=== PATIENT | male | born 1970 | race Caucasian/White ===

== ENCOUNTER 2020-07-14 05:38 | Emergency (ER) | payer OTHER, SELFPAY ==
--- NOTE | ~2020-07-14 | CT_ITS ---
EXAMINATION: CT abdomen pelvis wo con DATE: 07/14/2020 06:21 INDICATION: Right flank pain TECHNIQUE: Computed tomography (CT) of the abdomen and pelvis was performed without intravenous contr ast. The dose-length product was 555.07 mGy-cm. Automated exposure control and iterative reconstructi on technique were employed. COMPARISON: None. FINDINGS: There is a 3 mm right UVJ stone with mild hydronephrosis. Lung bases unremarkable. Heart size normal. No significant pleural or pericardial effusion. Small hia amie hernia. The liver, spleen, pancreas, adrenal glands and right kidney are unremarkable. There is a left renal cyst measuring 2.1 cm. Nonobstructive bowel gas pattern. Normal appendix. No free air or free fluid. No significant vascular abnormality. Retroaortic left renal vein. No lymphadenopathy. No acute osseou s abnormality. IMPRESSION: 1. 3 mm right UVJ stone with mild hydronephrosis. Reviewed, dictated and finalized at location A.
[2020-07-14 05:43] VITALS: BP 125/68; PULSE 57; RESP 18; TEMP 36.1; O2SAT 99
--- NOTE | 2020-07-14 05:49 | ED.ABDPAIN ---
HPI - Abdominal Pain General Chief Complaint: Abdominal Pain Stated Complaint: lower back and abd pain Time Seen by Provider: 07/14/20 05:47 History of Present Illness HPI narrative: 49 yo male presents to the ED for right flank pain. He has had intermittent pain in the right flank radiating to the right lower back for the past 2 days. the pain was acuetely worse this morning and was not resloving. 7/10 in severity. He has never had this pain before. It is associated with a feeling of incomplete bladder emptying. No hematuria, dysuria, nausea, vomiting, diarrhea. Related Data Allergies Allergy/AdvReac Type Severity Reaction Status Date / Time No Known Allergies Allergy Verified 07/14/20 06:07 Review of Systems Review of Systems: All systems reviewed & are unremarkable except as noted in HPI and below Constitutional: Constitutional: Denies fever(s) Cardiovascular: Cardiovascular: Denies chest pain Respiratory: Respiratory: Denies dyspnea Gastrointestinal: Gastrointestinal: Reports abdominal pain, Denies constipation, Denies diarrhea, Denies nausea and Denies vomiting Genitourinary: Genitourinary: Denies hematuria and Denies dysuria [facility] Social History Social History (Updated 07/14/20 @ 06:18 by Chiki Schulte MD) Smoking status: Never smoker Living arrangements: with family Gender identity (if verbalized by the patient): Male Exam Const: General: healthy appearing, no acute distress and alert Orientation/consciousness: patient oriented x3 HENMT: Head: normal to inspection Neck: Neck: normal visual inspection and no lymphadenopathy Resp: Effort & Inspection: normal respiratory effort Auscultation: clear to auscultation bilaterally, no rales, no rhonchi and no wheezes Cardio: Jugular venous distension: no JVD Rate: regular rate Rhythm: regular rhythm Heart sounds: no murmurs GI: Inspection: non-distended GI Palp: Yes Soft to palpation and No Tenderness to palpation present (GI) Skin: General skin exam: normal color Neuro: General: patient oriented x3 and moves all extremities Speech: normal speech Extrem: General: no edema Psych: Appearance: well kempt Affect: normal affect Course Vital Signs Vital signs: Vital Signs Temperature 36.1 C L 07/14/20 05:43 Pulse Rate 57 L 07/14/20 05:43 Respiratory Rate 18 07/14/20 05:43 Blood Pressure 125/68 07/14/20 05:43 Pulse Oximetry 99 07/14/20 05:43 Temperature 36.1 C L 07/14/20 05:43 Pulse Rate 60 07/14/20 08:43 Respiratory Rate 20 07/14/20 08:43 Blood Pressure 120/71 07/14/20 08:43 Pulse Oximetry 99 07/14/20 08:43 MDM - Abdominal Pain Differential Diagnosis Differential diagnosis: Likely acute appendicitis, calculus of kidney and diverticulitis Medical Records Attestation: I reviewed the patient's medical records. Lab Data Attestation: I reviewed the patient's lab results. Result diagrams: 07/14/20 06:03 07/14/20 06:03 Labs: Lab Results 07/14/20 07/14/20 Range/Units 06:03 06:03 WBC 6.7 (4.5-10.0) K/mm3 RBC 4.78 (4.6-6.20) M/mm3 Hgb 14.5 (14.0-18.0) g/dL Hct 43.0 (42.0-52.0) % MCV 90.0 (80-100) fl MCH 30.3 (26-34) pg MCHC 33.7 (32-36) g/dl RDW 11.9 (11.5-14.5) % Plt Count 185 (150-375) k/mm3 MPV 9.2 (7.4-10.4) fl Immature Gran % (Auto) 0.1 (0-0.5) % Neut % (Auto) 63.7 (45.5-73.1) % Lymph % (Auto) 26.0 (18.3-44.2) % [place] % (Auto) 7.7 (2.6-8.5) % Eos % (Auto) 1.3 (0-4.4) % Baso % (Auto) 1.2 (0.2-1.2) % Lymph # (Auto) 1.75 (0.9-3.2) K/mm3 [place] # (Auto) 0.5 (0.1-0.6) K/mm3 Eos # (Auto) 0.1 (0-0.3) K/mm3 Baso # (Auto) 0.1 (0.0-0.1) K/mm3 Abs Immat Gran (auto) 0.01 (0.00-0.031) K/mm3 Absolute Neuts (auto) 4.3 (1.3-6.7) K/mm3 Absolute Nucleated RBC 0.0 (0.0-0.012) K/mm3 Nucleated RBC % 0.0 (0.0-0.2) % Sodium Cancelled Potassium Cancelled Chloride Cancelled
[2020-07-14] MEDS: SODIUM CHLORIDE 0.9% IV 1,000 ML 999 ML IV CONT (05:59)
[2020-07-14] MEDS: fentaNYL CITRATE INJ (*CRX) 100 MCG/2 ML VIAL 50 MCG IV PUSH (05:59)
[2020-07-14 06:11] LABS: Basophils Absolute Auto 0.1 K/mm3 (0.0-0.1); Basophils Percent Auto 1.2 % (0.2-1.2); Eosinophils Absolute Auto 0.1 K/mm3 (0-0.3); Eosinophils Percent Auto 1.3 % (0-4.4); Hemoglobin 14.5 g/dL (14.0-18.0); Immature Granulocyte Absolute 0.01 K/mm3 (0.00-0.031); Immature Granulocyte Percent A 0.1 % (0-0.5); Lymphocytes Absolute Auto 1.75 K/mm3 (0.9-3.2); Mean Corpuscular HGB Conc 33.7 g/dl (32-36); Mean Corpuscular Hemoglobin 30.3 pg (26-34); Mean Platelet Volume 9.2 fl (7.4-10.4); Monocytes Absolute Auto 0.5 K/mm3 (0.1-0.6); Monocytes Percent Auto 7.7 % (2.6-8.5); Neutrophils Absolute Auto 4.3 K/mm3 (1.3-6.7); Neutrophils Percent Auto 63.7 % (45.5-73.1); Platelet Count Result 185 k/mm3 (150-375); Red Blood Count 4.78 M/mm3 (4.6-6.20); Red Cell Distribution Width 11.9 % (11.5-14.5); White Blood Count 6.7 K/mm3 (4.5-10.0)
[2020-07-14] MEDS: KETOROLAC 30 MG/ML VIAL (*BKC) IV PUSH (06:32)
[2020-07-14] MEDS: TAMSULOSIN HCL 0.4 MG CAPSULE PO (06:32)
[2020-07-14 07:09] VITALS: BP 116/74; PULSE 60; RESP 20; O2SAT 98
[2020-07-14 08:43] VITALS: BP 120/71; PULSE 60; RESP 20; O2SAT 99
== END 2020-07-14 08:45 | disposition home or self-care (01) ==
PROVIDERS: Emergency Provider Emergency Medicine; PCP Internal Medicine
DX: N13.2 Hydronephrosis with renal and ureteral calculous obstruction (principal)
CPT/HCPCS: 36415; 74176; 85025; 96361; 96374; 96375; 99284; A9270; J1885; J3010; J7030